=== PATIENT | female | born 1985 | race Two or more races ===

== ENCOUNTER 2018-08-22 09:44 | Outpatient (CLI) | payer OTHER | END 2018-08-22 09:55 | disposition home or self-care (01) | LOC: SONOGRAMA 09:44 → EDBD 09:44 → SONOGRAMA 09:55 → MAMO-SONO 10:00 | DX: D34 Benign neoplasm of thyroid gland (principal); N20.0 Calculus of kidney; D25.2 Subserosal leiomyoma of uterus ==

== ENCOUNTER → 2018-08-31 | Outpatient (CLI) | payer OTHER | END | disposition home or self-care (01) | LOC: NUCLEAR 09:43 → EDBD 09:43 | DX: C73 Malignant neoplasm of thyroid gland (principal) | CPT/HCPCS: 78013; A9512 ==